=== PATIENT | female | born 1940 | race Caucasian/White ===

== ENCOUNTER → 2018-05-17 | Emergency (ER) | payer MEDICARE, OTHER ==
[~2018-05-17] VITALS: Ht 165.1 cm; Wt 66.0 kg
[~2018-05-17] MED LIST: ONDA4TAB6 PO; normal saline 1000ML IV soln IVB ONE
[2018-05-17 10:25] LABS: BASOPHILS % (AUTO) 0.6 % (0-1); EOSINOPHILS # (AUTO) 0.3 X10'3 (0-0.9); EOSINOPHILS % (AUTO) 6.3 % (0-6); HEMATOCRIT 40.9 % (35.0-45.0); HEMOGLOBIN 13.8 g/dl (12.0-16.0); LYMPHOCYTES # (AUTO) 1.3 X10'3 (1.1-4.8); LYMPHOCYTES % (AUTO) 25.8 % (21-51); MEAN CORPUSCULAR HEMOGLOBIN 31.4 PG (27.0-31.0); MEAN CORPUSCULAR HGB CONC 33.8 % (33.0-36.5); MEAN CORPUSCULAR VOLUME 92.9 FL (78-98); MEAN PLATELET VOLUME 8.3 FL (7.4-10.4); MONOCYTES # (AUTO) 0.4 X10'3 (0-0.9); MONOCYTES % (AUTO) 7.6 % (2-12); NEUTROPHILS % (AUTO) 59.7 % (42-75); PLATELET COUNT 197 X10'3 (140-440); RED CELL DISTRIBUTION WIDTH 13.9 % (11.5-14.5)
[2018-05-17 10:40] LABS: INR 1.1 INR; PARTIAL THROMBOPLASTIN TIME 27 SECONDS (22-32); PROTHROMBIN TIME 10.8 SECONDS (9.0-12.0)
[2018-05-17 10:41] LABS: ALANINE AMINOTRANSFERASE 15 U/L (12-78); ALBUMIN 3.7 G/DL (3.4-5.0); ALBUMIN/GLOBULIN RATIO 1.2 (1.1-1.5); ALKALINE PHOSPHATASE 64 IU/L (46-116); ANION GAP 8 (8-16); ASPARTATE AMINO TRANSFERASE 23 U/L (10-37); BILIRUBIN,TOTAL 0.6 MG/DL (0.1-1.0); BLOOD UREA NITROGEN 23 MG/DL (7-18); BUN/CREATININE RATIO 17.2 (6.6-38.0); CALCIUM 9.2 MG/DL (8.5-10.1); CHLORIDE 104 MMOL/L (99-107); CREATININE 1.34 MG/DL (0.40-0.90); GLUCOSE 117 MG/DL (70-104); POTASSIUM 4.9 MMOL/L (3.5-5.1); SODIUM 142 MMOL/L (135-145); TOTAL CARBON DIOXIDE 30.5 MMOL/L (24-32); TOTAL PROTEIN 6.8 G/DL (6.4-8.2); eGFR 38 ML/MIN
[2018-05-17 12:08] VITALS: BP 145/85
== END | disposition home or self-care (01) ==
LOC: ER 09:56
DX: R42 Dizziness and giddiness (principal); E03.9 Hypothyroidism, unspecified; Z98.890 Other specified postprocedural states
CPT/HCPCS: 36415; 71045; 80053; 84484; 85025; 85610; 85730; 93005; 99284

== ENCOUNTER 2018-10-11 14:24 | Emergency (ER) | payer MEDICARE ==
[~2018-10-11] VITALS: Ht 162.6 cm; Wt 67.7 kg
[~2018-10-11 14:24] MED LIST changes: -normal saline 1000ML IV soln IVB ONE
[2018-10-11] MEDS ORDERED: HYDROcodone/acetaminophen 5mg/325mg tablet PO ONE (16:05)
[2018-10-11 16:13] VITALS: BP 166/97
[2018-10-11] MEDS ORDERED: TRAM50TA2 PO (16:13)
--- NOTE | 2018-10-11 16:22 | NUR ---
PT CALLED SON. STATED WILL BE HERE IN THE NEXT 30 MIN
== END 2018-10-11 16:27 | disposition home or self-care (01) ==
LOC: ER 14:24
DX: S20.212A Contusion of left front wall of thorax, initial encounter (principal); S20.211A Contusion of right front wall of thorax, initial encounter; E03.9 Hypothyroidism, unspecified; Z79.899 Other long term (current) drug therapy; W18.2XXA Fall in (into) shower or empty bathtub, initial encounter; Y93.89 Activity, other specified; Y92.89 Other specified places as the place of occurrence of the external cause; Y99.8 Other external cause status
CPT/HCPCS: 71100; 99284

== ENCOUNTER 2019-01-24 22:10 | Inpatient (IN) | payer MEDICARE ==
[~2019-01-24] VITALS: Ht 162.6 cm; Wt 70.0 kg
[2019-01-24] MEDS ORDERED: HYDROcodone/acetaminophen 5mg/325mg tablet PO ONE (22:30)
--- NOTE | 2019-01-24 22:40 | NUR ---
Gretel adler in [facility] - 01/24/19 at 2301 by KEI assisted jorge pt into a inezn
--- NOTE | 2019-01-24 22:55 | NUR ---
pt to ct
--- NOTE | 2019-01-24 22:55 | NUR ---
Gretel adler in [facility] - 01/24/19 at 2303 by KEI pt to xray
--- NOTE | 2019-01-24 23:27 | NUR ---
pt given warm blankets and socks. she reports her pain is decreased from arrival
--- NOTE | 2019-01-25 00:44 | NUR ---
pt up out of bed to bedside commode. transfered independently.
[2019-01-25] MEDS ORDERED: morphine 4 MG/ML inj SYRINge IV ONE (01:10)
[2019-01-25 01:38] LABS: BASOPHILS % (AUTO) 0.4 % (0-1); EOSINOPHILS # (AUTO) 0.1 X10'3 (0-0.9); EOSINOPHILS % (AUTO) 1.8 % (0-6); HEMATOCRIT 37.2 % (35.0-45.0); HEMOGLOBIN 12.7 g/dl (12.0-16.0); LYMPHOCYTES # (AUTO) 1.3 X10'3 (1.1-4.8); LYMPHOCYTES % (AUTO) 16.5 % (21-51); MEAN CORPUSCULAR HEMOGLOBIN 32.4 PG (27.0-31.0); MEAN CORPUSCULAR HGB CONC 34.1 g/dL (33.0-36.5); MEAN CORPUSCULAR VOLUME 95.1 FL (78-98); MEAN PLATELET VOLUME 7.6 FL (7.4-10.4); MONOCYTES # (AUTO) 0.5 X10'3 (0-0.9); MONOCYTES % (AUTO) 6.6 % (2-12); NEUTROPHILS # (AUTO) 5.9 X10'3 (1.8-7.7); NEUTROPHILS % (AUTO) 74.7 % (42-75); PLATELET COUNT 163 X10'3 (140-440); RED BLOOD COUNT 3.91 X10'6 (4.20-5.60); RED CELL DISTRIBUTION WIDTH 13.8 % (11.5-14.5); WHITE BLOOD COUNT 7.9 X10'3 (4.5-11.0)
[2019-01-25] MEDS ORDERED: morphine 2 MG/ML inj. syringe IV PRN (01:45)
[2019-01-25] MEDS ORDERED: ondansetron/PF 4mg/2ml inj IV PRN (01:45)
[2019-01-25] MEDS ORDERED: magnesium hydroxide 30ml (MOM) UD suspension PO PRN (01:45)
[2019-01-25] MEDS ORDERED: mag hydrox/Alum hydrox/simeth 30ml oral suspension PO PRN (01:45)
[2019-01-25] MEDS ORDERED: acetaminophen 325mg tablet PO PRN ×2 (01:45)
[2019-01-25 01:46] LABS: CLARITY,URINE CLEAR (Clear); COLOR,URINE YELLOW (Yellow); GLUCOSE, URINE NEGATIVE (Neg); KETONES,URINE NEGATIVE (Neg); LEUKOCYTE ESTERASE ,URINE NEGATIVE (Neg); NITRITES, URINE NEGATIVE (Neg); OCCULT BLOOD,URINE TRACE-INTACT (Neg); PH,URINE 5.5 (4.8-8.0); PROTEIN,URINE NEGATIVE (Neg); UROBILINOGEN,URINE 0.2 E.U/dL (0.2-1.0)
[2019-01-25 01:48] LABS: UA COLLECTION TYPE CLN CATCH MIDSTREAM
[2019-01-25 01:50] LABS: PARTIAL THROMBOPLASTIN TIME 26 SECONDS (22-32)
[2019-01-25 01:52] LABS: BACTERIA,URINE NONE SEEN /HPF (Neg); MUCUS STRANDS NONE SEEN /LPF (Neg); RBC,URINE 0-2 /HPF (0-2); SQUAMOUS EPITHELIAL CELL,UR FEW /LPF (FEW); WBC,URINE NONE SEEN /HPF (0-4)
[2019-01-25 01:53] LABS: ALANINE AMINOTRANSFERASE 29 U/L (12-78); ALBUMIN 3.5 G/DL (3.4-5.0); ALBUMIN/GLOBULIN RATIO 1.3 (1.1-1.5); ALKALINE PHOSPHATASE 53 IU/L (46-116); ANION GAP 7 (8-16); ASPARTATE AMINO TRANSFERASE 45 U/L (10-37); BILIRUBIN,TOTAL 0.5 MG/DL (0.1-1.0); BLOOD UREA NITROGEN 31 MG/DL (7-18); BUN/CREATININE RATIO 23.3 (6.6-38.0); CALCIUM 8.6 MG/DL (8.5-10.1); CHLORIDE 108 MMOL/L (99-107); CREATININE 1.33 MG/DL (0.40-0.90); GLUCOSE 109 MG/DL (70-104); POTASSIUM 4.4 MMOL/L (3.5-5.1); SODIUM 142 MMOL/L (135-145); TOTAL PROTEIN 6.3 G/DL (6.4-8.2); eGFR 38 ML/MIN
[2019-01-25 01:56] LABS: ETHANOL < 0.010 GM/DL (0.0-0.010); TROPONIN I < 0.04 NG/ML (0.0-0.05)
[2019-01-25] MEDS ORDERED: ACET-2006 PO (02:11)
[2019-01-25] MEDS ORDERED: BENA20TA82 PO (02:12)
--- NOTE | 2019-01-25 02:38 | NUR ---
medicated pt with 4 mg of morphine iv for pain rated 4/10 to neck and back
[2019-01-25] MEDS ORDERED: PARO20TA6 PO (02:41)
[2019-01-25] MEDS ORDERED: ATOR10TA87 PO (02:42)
[2019-01-25] MEDS ORDERED: LEVO100T PO (02:45)
--- NOTE | 2019-01-25 04:10 | NUR ---
pt arrived to unit with all belonging, call light in reach, VS stable, pt oriented to room
[2019-01-25 04:23] VITALS: BP 172/73
--- NOTE | 2019-01-25 05:09 | NUR ---
pt states that she wants to be FULL CODE pt was listed as limited code, no compressions, when asking the pt wishes before putting on limited code band pt stated that she "wanted her chest to be pounded on to save her life". pt was then asked in the event that her heart stopped would she want all measures taken including chest compressions and defib to save her life she stated "yes i want to live, last time i didn't care but i do now". called Dr. Wise and explained pt's wishes
--- NOTE | 2019-01-25 05:40 | NUR ---
I have reviewed and agree with assessment done by charge nurse Momo Molina RN
[2019-01-25 06:00] VITALS: BP 144/76
--- NOTE | 2019-01-25 06:40 | NUR ---
Patient in room PCU 3026. I have received report from SOWMYA Saunders and had the opportunity to ask questions and assume patient care.
--- NOTE | 2019-01-25 06:42 | NUR ---
Problems reprioritized. Patient report given, questions answered & plan of care reviewed with Sreedhar DENG.
[2019-01-25] MEDS ORDERED: RALO60TA13 PO (07:32)
[2019-01-25] MEDS: enoxaparin 40mg/0.4ml syringe SUBCUT SCH (07:52)
[2019-01-25] MEDS ORDERED: potassium Cl 20 mEq SR tablet PO PRN ×2 (09:55)
[2019-01-25] MEDS ORDERED: potassium CL 10mEq/100ml bag 100 ML IV PRN (09:55)
[2019-01-25] MEDS ORDERED: magnesium 4gm in 100ml NS 100 ML IV PRN (09:55)
[2019-01-25] MEDS ORDERED: magnesium Cl slow-release 64mg tablet PO PRN (09:55)
--- NOTE | 2019-01-25 10:23 | NUR ---
PAGER ID: [phone] MESSAGE: [id number] Lianet Escobedo: Listed as limited code no compressions, per Noc shift RN patient stated she wanted to be full code. SOWMYA Eli ext [phone]
[2019-01-25 11:00] VITALS: BP 164/69
[2019-01-25] MEDS: morphine 2 MG/ML inj. syringe IV PRN (11:14)
[2019-01-25] MEDS ORDERED: pneumococcal 23-VAL P-sac vacc 25 mcg/0.5ml vial IMVAC ONE (14:20)
[2019-01-25 15:00] VITALS: BP 149/71
--- NOTE | 2019-01-25 18:15 | NUR ---
Patient in room PCU 3026. I have received report from Sreedhar DENG and had the opportunity to ask questions and assume patient care.
--- NOTE | 2019-01-25 18:32 | NUR ---
Problems reprioritized. Patient report given, questions answered & plan of care reviewed with Chip RN.
[2019-01-25] MEDS: lisinopril 20mg tablet PO SCH (20:49)
[2019-01-25] MEDS: HYDROcodone/acetaminophen 5mg/325mg tablet PO PRN (20:49)
[2019-01-25 22:00] VITALS: BP 176/70
--- NOTE | 2019-01-25 22:00 | NUR ---
BP of 176/70 noted, per previous conversation with MD. Wise, he does not prescribe prn medications for BP because "there is no significant evidence of improved outcomes by this method". will continue to monitor
[2019-01-26] VITALS (8 sets, daily range): BP systolic 124–190; BP diastolic 48–89
--- NOTE | 2019-01-26 02:55 | NUR ---
NOTIFIED pt BP is 190/79, this was rechecked using manual method and is true. called Dr. Wise with result, . asked if there was evidence of organ dysfunction, there is not. . states that he will defer to day shift for further treatment. will continue to monitor.
--- NOTE | 2019-01-26 06:10 | NUR ---
Problems reprioritized. Patient report given, questions answered & plan of care reviewed with Sreedhar DENG.
--- NOTE | 2019-01-26 06:25 | NUR ---
Patient in room PCU 3026. I have received report from SOWMYA Saunders and had the opportunity to ask questions and assume patient care.
[2019-01-26 06:36] LABS: ALBUMIN 3.4 G/DL (3.4-5.0); ANION GAP 9 (8-16); BLOOD UREA NITROGEN 16 MG/DL (7-18); BUN/CREATININE RATIO 16.8 (6.6-38.0); CALCIUM 8.6 MG/DL (8.5-10.1); CHLORIDE 106 MMOL/L (99-107); CREATININE 0.95 MG/DL (0.40-0.90); GLUCOSE 111 MG/DL (70-104); MAGNESIUM 1.8 MG/DL (1.5-2.4); PHOSPHORUS 2.9 MG/DL (2.3-4.5); POTASSIUM 3.6 MMOL/L (3.5-5.1); SODIUM 142 MMOL/L (135-145); TOTAL CARBON DIOXIDE 27.3 MMOL/L (24-32); eGFR 57 ML/MIN
[2019-01-26 06:41] LABS: BASOPHILS % (AUTO) 0.3 % (0-1); EOSINOPHILS # (AUTO) 0.1 X10'3 (0-0.9); EOSINOPHILS % (AUTO) 1.2 % (0-6); HEMATOCRIT 38.1 % (35.0-45.0); LYMPHOCYTES # (AUTO) 0.9 X10'3 (1.1-4.8); LYMPHOCYTES % (AUTO) 14.6 % (21-51); MEAN CORPUSCULAR HEMOGLOBIN 32.8 PG (27.0-31.0); MEAN CORPUSCULAR HGB CONC 34.2 g/dL (33.0-36.5); MEAN CORPUSCULAR VOLUME 95.9 FL (78-98); MEAN PLATELET VOLUME 8.3 FL (7.4-10.4); MONOCYTES # (AUTO) 0.5 X10'3 (0-0.9); MONOCYTES % (AUTO) 7.8 % (2-12); NEUTROPHILS # (AUTO) 4.6 X10'3 (1.8-7.7); NEUTROPHILS % (AUTO) 76.1 % (42-75); PLATELET COUNT 135 X10'3 (140-440); RED BLOOD COUNT 3.97 X10'6 (4.20-5.60); RED CELL DISTRIBUTION WIDTH 13.6 % (11.5-14.5); WHITE BLOOD COUNT 6.1 X10'3 (4.5-11.0)
[2019-01-26] MEDS: lisinopril 20mg tablet PO SCH ×2 (07:34→19:45)
[2019-01-26] MEDS: raloxifene 60mg tablet PO SCH (07:34)
[2019-01-26] MEDS: levoTHYROXINE 100mcg tablet PO SCH (07:34)
[2019-01-26] MEDS: atorvastatin 10mg tablet PO SCH (07:34)
[2019-01-26] MEDS: PARoxetine 20mg tablet PO SCH (07:34)
[2019-01-26] MEDS: enoxaparin 40mg/0.4ml syringe SUBCUT SCH (07:35)
[2019-01-26] MEDS: morphine 2 MG/ML inj. syringe IV PRN (07:36)
--- NOTE | 2019-01-26 10:15 | NUR ---
Patient in room PCU 3026. I have received report from SOWMYA Eli and had the opportunity to ask questions and assume patient care.
--- NOTE | 2019-01-26 18:46 | NUR ---
Problems reprioritized. Patient report given, questions answered & plan of care reviewed with SOWMYA Rendon.
[2019-01-27] MEDS: HYDROcodone/acetaminophen 5mg/325mg tablet PO PRN ×2 (01:54→13:19)
[2019-01-27 02:00] VITALS: BP 159/80
[2019-01-27 05:24] LABS: BASOPHILS % (AUTO) 0.3 % (0-1); EOSINOPHILS # (AUTO) 0.1 X10'3 (0-0.9); EOSINOPHILS % (AUTO) 1.1 % (0-6); HEMOGLOBIN 12.3 g/dl (12.0-16.0); LYMPHOCYTES # (AUTO) 0.9 X10'3 (1.1-4.8); LYMPHOCYTES % (AUTO) 13.3 % (21-51); MEAN CORPUSCULAR HGB CONC 34.3 g/dL (33.0-36.5); MEAN CORPUSCULAR VOLUME 96.3 FL (78-98); MEAN PLATELET VOLUME 8.6 FL (7.4-10.4); MONOCYTES # (AUTO) 0.6 X10'3 (0-0.9); MONOCYTES % (AUTO) 9.2 % (2-12); NEUTROPHILS # (AUTO) 5.3 X10'3 (1.8-7.7); NEUTROPHILS % (AUTO) 76.1 % (42-75); PLATELET COUNT 137 X10'3 (140-440); RED BLOOD COUNT 3.74 X10'6 (4.20-5.60); RED CELL DISTRIBUTION WIDTH 13.6 % (11.5-14.5)
[2019-01-27 06:00] VITALS: BP 161/84
--- NOTE | 2019-01-27 06:05 | NUR ---
Problems reprioritized. Patient report given, questions answered & plan of care reviewed with Pacheco DENG.
[2019-01-27 06:15] LABS: ALBUMIN 3.1 G/DL (3.4-5.0); ANION GAP 7 (8-16); BLOOD UREA NITROGEN 18 MG/DL (7-18); BUN/CREATININE RATIO 16.7 (6.6-38.0); CALCIUM 8.2 MG/DL (8.5-10.1); CHLORIDE 105 MMOL/L (99-107); CREATININE 1.08 MG/DL (0.40-0.90); GLUCOSE 114 MG/DL (70-104); MAGNESIUM 1.9 MG/DL (1.5-2.4); PHOSPHORUS 3.1 MG/DL (2.3-4.5); POTASSIUM 3.4 MMOL/L (3.5-5.1); SODIUM 141 MMOL/L (135-145); TOTAL CARBON DIOXIDE 28.6 MMOL/L (24-32); eGFR 49 ML/MIN
--- NOTE | 2019-01-27 06:20 | NUR ---
Patient in room PCU 3026. I have received report from Julieta DENG and had the opportunity to ask questions and assume patient care.
[2019-01-27] MEDS: levoTHYROXINE 100mcg tablet PO SCH (07:44)
[2019-01-27] MEDS: raloxifene 60mg tablet PO SCH (07:44)
[2019-01-27 07:45] VITALS: BP_SYST 161
[2019-01-27] MEDS: lisinopril 20mg tablet PO SCH (07:45)
[2019-01-27] MEDS: PARoxetine 20mg tablet PO SCH (07:45)
[2019-01-27] MEDS: atorvastatin 10mg tablet PO SCH (07:45)
[2019-01-27] MEDS: enoxaparin 40mg/0.4ml syringe SUBCUT SCH (07:46)
[2019-01-27] MEDS ORDERED: AMLO5TAB4 PO (10:48)
[2019-01-27] MEDS ORDERED: amLODIPine 5mg tablet PO ONE (10:50)
--- NOTE | 2019-01-27 11:19 | NUR ---
PAGER ID: [phone] MESSAGE: RE: Lianet Escobedo, Room: 302. Pt concerned about pain management at home and was wondering about pain meds at [place]. -[facility][phone] Dr. Lozano paged concerning Pt concern about pain managment once DC'd.
--- NOTE | 2019-01-27 14:25 | NUR ---
Pt DC'd home with son. IV removed, canula intact. Pt stable upon DC and vitals within normal limits. DC paperwork gone over with Pt and son. Allowed Pt and son to ask questions concerning DC/follow-up and then answer them. New prescriptions called into [facility] pharmacy on [address]. Allowed t to ask questions concerning new meds and then answer them. Pt will make follow up appt with PCP at [facility]. Pt's belongings gathered and sent with Pt. Pt wheeled down to lobby via wheel chair and left in private vehicle with son.
== END 2019-01-27 14:25 | disposition home health service (06) | DRG 184 ==
LOC: ER 22:11 → PCU 3S 01-25 04:15 → CMPBEDREQ 01-25 04:25
PROVIDERS: ADMIT Hospitalist; ATTEND Family Medicine
PROC: 3E0234Z Introduction of Serum, Toxoid and Vaccine into Muscle, Percutaneous Approach (ICD-10-PCS; principal; 2019-01-25)
DX: S22.42XA Multiple fractures of ribs, left side, initial encounter for closed fracture (principal); S22.069A Unspecified fracture of T7-T8 vertebra, initial encounter for closed fracture; J98.11 Atelectasis; S22.059A Unspecified fracture of T5-T6 vertebra, initial encounter for closed fracture; S22.049A Unspecified fracture of fourth thoracic vertebra, initial encounter for closed fracture; J43.2 Centrilobular emphysema; S00.03XA Contusion of scalp, initial encounter; E78.5 Hyperlipidemia, unspecified; W10.9XXA Fall (on) (from) unspecified stairs and steps, initial encounter; E89.0 Postprocedural hypothyroidism; F32.9 Major depressive disorder, single episode, unspecified; I10 Essential (primary) hypertension; I25.10 Atherosclerotic heart disease of native coronary artery without angina pectoris; K57.30 Diverticulosis of large intestine without perforation or abscess without bleeding; M47.812 Spondylosis without myelopathy or radiculopathy, cervical region; Z85.3 Personal history of malignant neoplasm of breast; Z85.828 Personal history of other malignant neoplasm of skin; Z90.710 Acquired absence of both cervix and uterus; Z92.3 Personal history of irradiation; Z23 Encounter for immunization; Y93.K1 Activity, walking an animal; Y92.89 Other specified places as the place of occurrence of the external cause; Y99.8 Other external cause status; Z98.51 Tubal ligation status; Z79.890 Hormone replacement therapy
CPT/HCPCS: 36415; 70450; 71250; 72125; 74176; 80048; 80053; 80320; 81001; 83735; 84100; 84443; 84484; 85025; 85610; 85730; 87081; 90732; 96372; 96374; 96376; 97116; 97161; 97530; 99285; G0378; J1650; J2270

== ENCOUNTER 2019-04-18 12:23 | Outpatient (CLI) | payer MEDICARE ==
[~2019-04-18] VITALS: Ht 162.6 cm; Wt 63.5 kg
[~2019-04-18 12:23] MED LIST changes: +ACET-2006 PO; +AMLO5TAB4 PO; +ATOR10TA87 PO; +BENA20TA82 PO; +LEVO100T PO; -ONDA4TAB6 PO; +PARO20TA6 PO; +RALO60TA13 PO
[2019-04-18 12:50] LABS: TOTAL HEMOGLOBIN 14.7 G/dl (12.0-16.0)
[2019-04-18] MEDS ORDERED: albuterol 2.5 MG/3 ML nebule NEB ONE (13:25)
== END 2019-04-18 23:59 | disposition home or self-care (01) ==
LOC: RT 12:23
PROVIDERS: ATTEND Internal Medicine Pulmonary Disease
DX: J44.9 Chronic obstructive pulmonary disease, unspecified (principal)
CPT/HCPCS: 85018; 94060; 94727; 94729; 94760

== ENCOUNTER 2021-02-02 13:48 | Emergency (ER) | payer MEDICARE ==
[~2021-02-02] VITALS: Ht 162.6 cm; Wt 72.6 kg
[2021-02-02 15:03] VITALS: BP 199/94
[2021-02-02] MEDS ORDERED: HYDROcodone/acetaminophen 5mg/325mg tablet PO ONE (15:40)
[2021-02-02] MEDS ORDERED: HYDR-3965 PO (16:18)
== END 2021-02-02 16:50 | disposition home or self-care (01) ==
LOC: ER 13:49
DX: S22.31XA Fracture of one rib, right side, initial encounter for closed fracture (principal); E03.9 Hypothyroidism, unspecified; Z98.890 Other specified postprocedural states; Z85.9 Personal history of malignant neoplasm, unspecified; Z79.899 Other long term (current) drug therapy; W01.0XXA Fall on same level from slipping, tripping and stumbling without subsequent striking against object, initial encounter; Y93.89 Activity, other specified; Y92.89 Other specified places as the place of occurrence of the external cause; Y99.8 Other external cause status
CPT/HCPCS: 71101; 99283

== ENCOUNTER 2024-10-09 20:20 | Emergency (ER) | payer MEDICARE ==
[~2024-10-09] VITALS: Ht 170.2 cm; Wt 59.1 kg
[~2024-10-09 20:20] MED LIST changes: -AMLO5TAB4 PO; +AMLO5TAB5 PO; +DULO30CA52 PO; +FLUT1BLS4 INH; +LACT1CAP26 PO
[2024-10-09 20:44] LABS: BASOPHILS % (AUTO) 0.7 % (0-1); EOSINOPHILS # (AUTO) 0.1 X10'3 (0-0.9); EOSINOPHILS % (AUTO) 1.5 % (0-6); HEMATOCRIT 35.7 % (35.0-45.0); HEMOGLOBIN 12.2 g/dl (12.0-16.0); LYMPHOCYTES # (AUTO) 1.2 X10'3 (1.1-4.8); MEAN CORPUSCULAR HEMOGLOBIN 31.2 PG (27.0-31.0); MEAN CORPUSCULAR HGB CONC 34.3 g/dL (33.0-36.5); MEAN PLATELET VOLUME 7.7 FL (7.4-10.4); MONOCYTES # (AUTO) 0.7 X10'3 (0-0.9); MONOCYTES % (AUTO) 18.3 % (2-12); NEUTROPHILS # (AUTO) 1.7 X10'3 (1.8-7.7); NEUTROPHILS % (AUTO) 45.5 % (42-75); PLATELET COUNT 161 X10'3 (140-440); RED BLOOD COUNT 3.92 X10'6 (4.20-5.60); RED CELL DISTRIBUTION WIDTH 13.7 % (11.5-14.5); WHITE BLOOD COUNT 3.7 X10'3 (4.5-11.0)
[2024-10-09 20:55] LABS: ALANINE AMINOTRANSFERASE 14 U/L (12-78); ALBUMIN 3.2 G/DL (3.4-5.0); ALBUMIN/GLOBULIN RATIO 1.3 (1.1-1.5); ALKALINE PHOSPHATASE 73 IU/L (46-116); ANION GAP 5 (8-16); ASPARTATE AMINO TRANSFERASE 19 U/L (10-37); BILIRUBIN,TOTAL 0.3 MG/DL (0.1-1.0); BLOOD UREA NITROGEN 25 MG/DL (7-18); BUN/CREATININE RATIO 19.2 (10.0-20.0); CALCIUM 8.4 MG/DL (8.5-10.1); CHLORIDE 104 MMOL/L (99-107); GLUCOSE 112 MG/DL (70-104); POTASSIUM 4.1 MMOL/L (3.5-5.1); SODIUM 139 MMOL/L (135-145); TOTAL CARBON DIOXIDE 30.4 MMOL/L (24-32); TOTAL PROTEIN 5.7 G/DL (6.4-8.2); eCRCL 30 ML/MIN; eGFR 39 ML/MIN
[2024-10-09 21:00] LABS: TOTAL CELLS COUNTED 100
[2024-10-09 21:02] LABS: BURR CELLS 1+; PLATELET ESTIMATE NORMAL; POIKILOCYTOSIS 1+; PRO BRAIN NATRIURETIC PEPTIDE 548 PG/ML (0-450)
--- NOTE | 2024-10-09 21:47 | RADIOLOGY REPORT ---
CT CT HEAD INDICATION: FALL W/ HEADSTRIKE COMPARISON: None TECHNIQUE: CT of the head without intravenous contrast. RADIATION DOSE: CTDIvol: mGy, DLP: mGy*cm FINDINGS: There is no evidence of intracranial hemorrhage, infarct, extra-axial collection, mass effect, midli ne shift, herniation or hydrocephalus. Mild chronic white matter microvascular ischemic change. Mild ventricular enlargement and sulcal enlargement related to cerebral volume loss. Visualized paranasal sinuses and mastoid air cells are clear. Soft tissues and osseous structures are unremarkable. IMPRESSION: No hemorrhage or other acute intracranial abnormality. Mild chronic white matter microvascular ischem ic changes and cerebral volume loss.
--- NOTE | 2024-10-09 22:06 | RADIOLOGY REPORT ---
CHEST RADIOGRAPH Indication: CP Technique: Single frontal view of the chest was obtained COMPARISON: Chest PA 02/02/21 FINDINGS: Lines and Tubes: None Lungs: Clear Pleura: No effusion. No pneumothorax. Cardiomediastinal contours: Heart size is within normal limits. Probable hiatal hernia. IMPRESSION: No acute disease. No significant change compared to the prior chest x-ray from January 2021.
[2024-10-09 22:32] LABS: BILIRUBIN,URINE NEGATIVE (Neg); CLARITY,URINE CLEAR (Clear); COLOR,URINE YELLOW (Yellow); GLUCOSE, URINE NEGATIVE (Neg); KETONES,URINE NEGATIVE (Neg); LEUKOCYTE ESTERASE ,URINE NEGATIVE (Neg); NITRITES, URINE NEGATIVE (Neg); OCCULT BLOOD,URINE NEGATIVE (Neg); PROTEIN,URINE NEGATIVE (Neg); UROBILINOGEN,URINE 0.2 E.U/dL (0.2-1.0)
[2024-10-09 22:36] LABS: UA COLLECTION TYPE CLN CATCH MIDSTREAM
--- NOTE | 2024-10-10 01:15 | Physician Documentation ---
History of Present Illness ~ Chief Complaint: Dizziness Stated Complaint: FALL Time Seen by MD: 00:56 Primary Medical Doctor: IN [facility] Mode of Arrival: EMS HPI Patient presents to the emergency room for evaluation of dizziness and falls. She reports that she has been working with her primary care provider who is sent [facility] however it has not worked and she is becoming frustrated. She states she has fallen multiple times. This has been going on for the past two months. No one-sided weakness. Dizziness exacerbated with head movement. No one-sided weakness reported. She states that she has had head imaging before. She also states that she has been evaluated at our hospital as well as [facility] for these falls although nothing recent in our records showed this. Medication Reconciliation Allergies: Coded Allergies: No Known Allergies (Unverified , 03/11/24) Scheduled Acetaminophen (Acetaminophen Extra Strength), 2 PO BID, (Reported) Amlodipine Besylate (Norvasc), 1 TAB PO DAILY, (Reported) Atorvastatin Calcium* (Lipitor*), 1 TABLET PO DAILY, (Reported) Benazepril Hcl* (Lotensin*), 1 TAB PO BID, (Reported) Duloxetine HCl (Duloxetine HCl), 1 CAP PO DAILY, (Reported) Fluticasone/Umeclidin/Vilanter (Trelegy Ellipta 100-62.5-25), 1 PUFFS INH DAILY, (Reported) Lactobacillus Rhamnosus (Culturelle), 1 CAP PO DAILY Levothyroxine Sodium (Synthroid), 1 TAB PO DAILY, (Reported) Paroxetine HCl (Paroxetine HCl), 1 TAB PO DAILY, (Reported) Raloxifene HCl (Raloxifene HCl), 1 TAB PO DAILY, (Reported) Past Medical History Past Medical History: COPD, Pneumonia, Diverticulitis, Hypothyroidism, Basal Cell, Depression Past Surgical History: cancer surgery, other Other Past Surgical History: thyroidectomy Drug Use: none Lives with: Family Lives In: Home Occupation: employed Physical Exam Vital Signs: Temperature: 98.1, Source: Oral, Heart Rate: 76, Respiratory Rate: 16, BP: 135/67, Pulse Oximetry: 95, Weight: 59.090 Oxygen Flow Rate: 0 Progress Progress Note Had long conversation with patient's son. She has been having problems falling for weeks to months at this juncture. The reason why ambulance was called this evening was because she fell out of bed and hit her head in the 100 to be evaluated. He states that her biggest problem is that she will fall when she is not using her walker. Nothing acute is changed. He states he feels safe taking her home and she has passed the road test. He in his brothers are working on possible rehab facility versus placement. Results/Orders Results/Orders Orders - WINSTON LAGUNAS MD Chest,Single View (10/09/24:25) Monitor (10/09/24:25) Saline Lock (10/09/24:25) Oxygen (10/09/24:25) Electrocardiogram (10/09/24:) Ct Head (10/09/24 21:40) Completed Orders - WINSTON LAGUNAS MD Chest,Single View (10/09/24:25) Cbc/Diff (10/09/24:) PBNP (10/09/24:25) CMP (10/09/24:) Hs Troponin I W Calculations (10/09/24:25) Hs Troponin I W Calculations (10/09/24 22:25) Hs Troponin I W Calculations (10/09/24 23:25) Urinalysis, Cult If Indicated (10/09/24:37) Man Diff (10/09/24 20:34) Ct Head (10/09/24 21:40) Vital Signs 10/09/24 10/09/24 10/09/24 10/10/24 20:37 21:17 22:20 00:21 Temp 98.1 Pulse 78 76 76 Resp 16 16 16 16 B/P (MAP) 130/69 136/75 (95) 135/67 (89) Pulse Ox 97 92 95 O2 Flow Rate 0 0 0 Laboratory Tests Test 10/09/24 20:34 10/09/24 22:10 10/09/24 22:30 10/09/24 23:23 White Blood Count 3.7 L Red Blood Count 3.92 L Hemoglobin 12.2 Hematocrit 35.7 Mean Corpuscular Volume 91.0 Mean Corpuscular Hemoglobin 31.2 H Mean Corpuscular Hemoglobin Concent 34.3 Red Cell Distribution Width 13.7 Platelet Count 161 Mean Platelet Volume 7.7 Neutrophils (%) (Auto) 45.5 Lymphocytes (%) (Auto) 34.0 Monocytes (%) (Auto) 18.3 H Eosinophils (%) (Auto) 1.5 Basophils (%) (Auto) 0.7 Neutrophils # (Auto) 1.7 L Lymphocytes # (Auto) 1.2 Monocytes # (Auto) 0.7 Eosinophils # (Auto) 0.1 Basophils # (Auto) 0.0 CBC Comment Differential Total Cells Counted 100 Neutrophils % (Manual) 54.0 Lymphocytes % (Manual) 33.0 Monocytes % (Manual) 13.0 H Platelet Estimate Normal Red Blood Cell Morphology Perf Poikilocytosis 1+ Basophilic Stippling Estrada Cells 1+ Sodium Level 139 Potassium Level 4.1 Chloride Level 104 Carbon Dioxide Level 30.4 Anion Gap 5 L Blood Urea Nitrogen 25 H Creatinine 1.30 H Estimated GFR/1.73 m2 39 BUN/Creatinine Ratio 19.2 Glucose Level 112 H Calcium Level 8.4 L Total Bilirubin 0.3 Aspartate Amino Transf (AST/SGOT) 19 Alanine Aminotransferase (ALT/SGPT) 14 Alkaline Phosphatase 73 Troponin I High Sensitivity 16 18 15 Pro-B-Type Natriuretic Peptide 548 H Total Protein 5.7 L Albumin 3.2 L Globulin 2.5 L Albumin/Globulin Ratio 1.3 Chemistry Comments Urine Specimen Description Cln catch midstream Urine Color Yellow Urine Clarity Clear Urine pH 6.0 Urine Specific Albertson 1.010 Urine Protein Negative Urine Glucose (UA) Negative Urine Ketones Negative Urine Occult Blood Negative Urine Nitrite Negative Urine Bilirubin Negative Urine Urobilinogen 0.2 Urine Leukocyte Esterase Negative Urine Culture Indicated Not ind Volume Urine Centrifuged 10 ml Urine Comment Troponin I High Sens Percent Delta 12 16 Troponin I Hi Sens Absolute Change 2 -3 Medical Decision Making Findings Patient presented to the emergency room for evaluation after a fall. Patient has unsteady gait at baseline however this seems to be progressively getting worse. As patient hit the back of her head during a fall today she came in to be evaluated and CT scan was reassuring. She has passed the road test and seven feels safe taking her home. Labs reassuring for no major pathologic derangements or urinary tract infection. She was established with a primary care who is working with her unsteady gait. Departure Disposition: HOME / SELF CARE / HOMELESS Impression: Primary Impression: Fall Condition: Stable Discharge Instructions: Fall Prevention in the Home, Adult, [id number] Additional Instructions: You to use your walker at all times. Follow up with primary care for additional referrals for physical therapy. Referrals: NO PRIMARY CARE PROVIDER (PCP) Education Educated: Patient, Family Educated regarding: need for follow up Signature Scribe Signature: No scribe Attestation: The note accurately reflects work and decisions made by me.Winston Lagunas MD 10/10/24 02:07 WINSTON LAGUNAS MD October 10, 2024 01:15
[2024-10-10 03:13] VITALS: BP 144/76; PULSE 82; RESP 18; TEMP 98.4; O2SAT 98
--- NOTE | 2024-10-10 07:08 | ELECTROCARDIOGRAPH REPORT ---
[facility] Test Date: 2024-10-09 Test Time: 20:27:09 Pat Name: MILTON IRBY Department: EMERGENCY ROOM Room: Gender: F Spray Unit Feeder: : [id number] Requested By: LISA CAMPBELL Order Number: [id number] Reading MD: Dr. Danyel Benson Measurements Intervals Maud Rate: 79 P: 38 WI: 157 QRS: 13 QRSD: 94 T: 63 QT: 410 QTc: 471 Interpretive Statements Sinus rhythm Baseline wander in lead(s) II,V1 Electronically Signed On 10-10-2024 10:25:[address] Danyel Benson Please click the below link to view image of tracing.
== END 2024-10-10 03:15 | disposition home or self-care (01) ==
LOC: ER 20:21
DX: R42 Dizziness and giddiness (principal); R29.6 Repeated falls; E03.9 Hypothyroidism, unspecified; J44.9 Chronic obstructive pulmonary disease, unspecified; F32.A Depression, unspecified; Z90.89 Acquired absence of other organs
CPT/HCPCS: 36415; 70450; 71045; 80053; 81003; 83880; 84484; 85007; 85025; 93005; 99285

== ENCOUNTER 2024-10-18 02:25 | Inpatient (IN) | payer MEDICARE ==
[~2024-10-18] VITALS: Ht 162.6 cm; Wt 50.0 kg
[2024-10-18] VITALS (8 sets, daily range): BP systolic 131–141; BP diastolic 68–89; PULSE 78–85; RESP 13–20; TEMP 98.3–98.6; O2SAT 88–95
[2024-10-18 03:00] LABS: BASOPHILS % (AUTO) 0.4 % (0-1); EOSINOPHILS # (AUTO) 0.1 X10'3 (0-0.9); EOSINOPHILS % (AUTO) 1.1 % (0-6); HEMATOCRIT 36.3 % (35.0-45.0); HEMOGLOBIN 12.5 g/dl (12.0-16.0); LYMPHOCYTES # (AUTO) 0.8 X10'3 (1.1-4.8); LYMPHOCYTES % (AUTO) 6.2 % (21-51); MEAN CORPUSCULAR HGB CONC 34.5 g/dL (33.0-36.5); MEAN CORPUSCULAR VOLUME 89.8 FL (78-98); MEAN PLATELET VOLUME 7.9 FL (7.4-10.4); MONOCYTES # (AUTO) 0.8 X10'3 (0-0.9); MONOCYTES % (AUTO) 6.9 % (2-12); NEUTROPHILS # (AUTO) 10.6 X10'3 (1.8-7.7); NEUTROPHILS % (AUTO) 85.4 % (42-75); PLATELET COUNT 282 X10'3 (140-440); RED BLOOD COUNT 4.05 X10'6 (4.20-5.60); RED CELL DISTRIBUTION WIDTH 13.2 % (11.5-14.5); WHITE BLOOD COUNT 12.4 X10'3 (4.5-11.0)
[2024-10-18 03:23] LABS: ALANINE AMINOTRANSFERASE 13 U/L (12-78); ALBUMIN/GLOBULIN RATIO 0.8 (1.1-1.5); ALKALINE PHOSPHATASE 69 IU/L (46-116); ANION GAP 10 (8-16); ASPARTATE AMINO TRANSFERASE 15 U/L (10-37); BILIRUBIN,TOTAL 0.6 MG/DL (0.1-1.0); BLOOD UREA NITROGEN 18 MG/DL (7-18); BUN/CREATININE RATIO 15.7 (10.0-20.0); CALCIUM 8.6 MG/DL (8.5-10.1); CHLORIDE 100 MMOL/L (99-107); CREATININE 1.15 MG/DL (0.40-0.90); GLUCOSE 148 MG/DL (70-104); POTASSIUM 3.5 MMOL/L (3.5-5.1); SODIUM 138 MMOL/L (135-145); TOTAL CARBON DIOXIDE 27.8 MMOL/L (24-32); TOTAL PROTEIN 6.7 G/DL (6.4-8.2); eCRCL 28 ML/MIN; eGFR 45 ML/MIN
[2024-10-18 03:28] LABS: PRO BRAIN NATRIURETIC PEPTIDE 314 PG/ML (0-450)
--- NOTE | 2024-10-18 03:56 | RADIOLOGY REPORT ---
Clinical History CP Comparison CXR on 10/09/2024, 1 images. Technique: frontal chest x-ray Without Contrast MILTON IRBY, [id number] Findings: Heart - normal lungs - right. Dawit infiltrate.. bones - no acute fracture. Other- tracheal deviation to the right. Clips in the left axilla. Impression: 1. right perihilar infiltrate similar to prior examination. This report was electronically signed by Gil Pedro MD on 10/18/2024 3:53:22 AM.
--- NOTE | 2024-10-18 03:57 | Physician Documentation ---
History of Present Illness ~ Chief Complaint: Shortness of Breath Stated Complaint: DIFFICULTY BREATHING Time Seen by MD: 03:45 Primary Medical Doctor: IN [facility] Mode of Arrival: EMS HPI Patient presents to the emergency room with significant cough and fevers. 1 g of Tylenol given prior to arrival. Patient states she has been bringing up a lot of mucus. History of COPD Medication Reconciliation Allergies: Coded Allergies: No Known Allergies (Unverified , 10/18/24) Scheduled Acetaminophen (Acetaminophen Extra Strength), 2 PO BID, (Reported) Amlodipine Besylate (Norvasc), 1 TAB PO DAILY, (Reported) Atorvastatin Calcium* (Lipitor*), 1 TABLET PO DAILY, (Reported) Benazepril Hcl* (Lotensin*), 1 TAB PO BID, (Reported) Duloxetine HCl (Duloxetine HCl), 1 CAP PO DAILY, (Reported) Fluticasone/Umeclidin/Vilanter (Trelegy Ellipta 100-62.5-25), 1 PUFFS INH DAILY, (Reported) Lactobacillus Rhamnosus (Culturelle), 1 CAP PO DAILY Levothyroxine Sodium (Synthroid), 1 TAB PO DAILY, (Reported) Paroxetine HCl (Paroxetine HCl), 1 TAB PO DAILY, (Reported) Raloxifene HCl (Raloxifene HCl), 1 TAB PO DAILY, (Reported) Past Medical History Past Medical History: COPD, Pneumonia, Diverticulitis, Hypothyroidism, Basal Cell, Depression Past Surgical History: cancer surgery, other Other Past Surgical History: thyroidectomy Drug Use: none Lives with: Family Lives In: Home Occupation: employed Review of Systems ROS All review of systems negative except as per HPI Physical Exam Vital Signs: Temperature: 99.7, Source: Oral, Heart Rate: 80, Respiratory Rate: 16, BP: 129/63, Pulse Oximetry: 91, Weight: 50.000 Oxygen Flow Rate: 0 Physical Exam General: Patient is awake, alert, oriented x4 in no acute distress Head: Normocephalic and atraumatic. Eyes: Conjunctival normal. EOMI. PERRL. ENT: Mucous membranes moist. Neck: Supple, trachea is midline. Chest: Coarse breath sounds bilaterally right greater than left. There is no accessory muscle use or retractions. Cardiac: RRR without murmurs, gallops, or rubs. Abd: Soft, nondistended, nontender, with normoactive bowel sounds. No guarding, rebound, or rigidity. Progress Results/Orders Results/Orders Orders - WINSTON LAGUNAS MD Chest,Single View (10/18/24 02:45) Monitor (10/18/24 02:34) Saline Lock (10/18/24 02:34) Oxygen (10/18/24 02:34) Electrocardiogram (10/18/24 02:34) Hs Troponin I W Calculations (10/18/24 04:34) Hs Troponin I W Calculations (10/18/24 05:34) Culture Blood (10/18/24 02:35) Lacticsepsis (10/18/24 02:35) Covid19 Binax Poc Result Entry (10/18/24 02:36) Azithromycin/Ns 500mg/250ml (Zithromax/N (10/18/24 03:50) Ceftriaxone/T9e-Dezaxudp 1gm (Rocephin 1 (10/18/24 03:50) Normal Saline 1000ml (Sodium Chloride 10 (10/18/24 03:50) Completed Orders - WINSTON LAGUNAS MD Chest,Single View (10/18/24 02:45) Cbc/Diff (10/18/24 02:34) PBNP (10/18/24 02:34) CMP (10/18/24 02:34) Hs Troponin I W Calculations (10/18/24 02:34) Procalcitonin (10/18/24 02:35) Normal Saline 1000ml (Sodium Chloride 10 (10/18/24 03:50) Vital Signs 10/18/24 10/18/24 10/18/24 02:26 02:36 03:31 Temp 99.7 Pulse 92 80 Resp 20 18 16 B/P (MAP) 143/70 129/63 (85) Pulse Ox 92 91 O2 Flow Rate 0 Laboratory Tests Test 10/18/24 02:40 10/18/24 02:47 White Blood Count 12.4 H Red Blood Count 4.05 L Hemoglobin 12.5 Hematocrit 36.3 Mean Corpuscular Volume 89.8 Mean Corpuscular Hemoglobin 31.0 Mean Corpuscular Hemoglobin Concent 34.5 Red Cell Distribution Width 13.2 Platelet Count 282 Mean Platelet Volume 7.9 Neutrophils (%) (Auto) 85.4 H Lymphocytes (%) (Auto) 6.2 L Monocytes (%) (Auto) 6.9 Eosinophils (%) (Auto) 1.1 Basophils (%) (Auto) 0.4 Neutrophils # (Auto) 10.6 H Lymphocytes # (Auto) 0.8 L Monocytes # (Auto) 0.8 Eosinophils # (Auto) 0.1 Basophils # (Auto) 0.0 CBC Comment Sodium Level 138 Potassium Level 3.5 Chloride Level 100 Carbon Dioxide Level 27.8 Anion Gap 10 Blood Urea Nitrogen 18 Creatinine 1.15 H Estimated GFR/1.73 m2 45 BUN/Creatinine Ratio 15.7 Glucose Level 148 H Calcium Level 8.6 Total Bilirubin 0.6 Aspartate Amino Transf (AST/SGOT) 15 Alanine Aminotransferase (ALT/SGPT) 13 Alkaline Phosphatase 69 Troponin I High Sensitivity 13 Pro-B-Type Natriuretic Peptide 314 Total Protein 6.7 Albumin 3.0 L Globulin 3.7 Albumin/Globulin Ratio 0.8 L Procalcitonin < 0.05 Chemistry Comments SARS-CoV-2 Antigen (Rapid) Positive *A EKG/XRAY/CT/US/VASC/MRI EKG : Additional Comment EKG interpreted by myself shows time of 0233, rate 90, sinus rhythm, borderline left axis deviation, no ST changes Chest X-Ray : Additional Comments Chest x-ray interpreted by myself shows right upper lobe infiltrate, no effusions, normal cardiac silhouette Medical Decision Making Findings Patient presents to the emergency room for evaluation of cough and fevers. Chest x-ray shows an infiltrate. Mild elevation of white blood cell count. IV antibiotics initiated. Patient's blood pressures are reassuring. I do not feel she would do well on outpatient basis as she is high risk Departure Admitted to Inpatient Unit: yes, to hospitalist Impression: Primary Impression: Pneumonia Condition: Guarded Discharge Instructions: Community-Acquired Pneumonia, Adult Referrals: NO PRIMARY CARE PROVIDER (PCP) Signature Scribe Signature: No scribe Attestation: The note accurately reflects work and decisions made by me.Winston Lagunas MD 10/18/24 03:57 WINSTON LAGUNAS MD October 18, 2024 03:57
[2024-10-18] MEDS: CefTRIAXone/D5W-Rocephin 1gm 50 ML IV ONE (04:30)
[2024-10-18] MEDS ORDERED: potassium Cl 20 mEq SR tablet PO PRN ×2 (04:35)
[2024-10-18] MEDS ORDERED: magnesium Cl slow-release 64mg tablet PO PRN (04:35)
[2024-10-18] MEDS ORDERED: mag hydrox/Alum hydrox/simeth 30ml oral suspension PO PRN (04:35)
[2024-10-18] MEDS ORDERED: magnesium sulf-water 2g/50mL 50 ML IV PRN (04:35)
[2024-10-18] MEDS ORDERED: magnesium sulf-water 4G/100mL 100 ML IV PRN (04:35)
[2024-10-18] MEDS ORDERED: magnesium hydroxide 30ml (MOM) UD suspension PO PRN (04:35)
[2024-10-18] MEDS ORDERED: potassium Cl 40MEQ/1/2NS 520ml 520 ML IV PRN (04:35)
[2024-10-18] MEDS: azithromycin/NS 500mg/250ml 250 ML IV ONE (04:41)
[2024-10-18] MEDS: normal saline 1000ML IV soln IVB ONE ×2 (04:42→06:00)
--- NOTE | 2024-10-18 04:47 | HISTORY AND PHYSICAL-Residence ---
History & Physical Providers to CC Resident Creating Document: ROLO FLETCHER, RAMON ~ History of Present Illness Primary Medical Doctor: IN [facility] Reason for Admit\Complaint: Pneumonia History of Present Illness This is an 84-year-old female with past medical history of COPD, obstructive sleep apnea on CPAP at night, hypertension came to the ER with a chief complaint of cough and shortness of breadth. The cough started about five days associated with yellow sputum. Also has low-grade fever. She also complained of shortness of breadth, increasing on walking. She also complained of pain in the left side of the chest which started this morning, described it as constant, sharp, 8 / 10, increasing with a deep breath. Denies palpitations, leg swellings. Denies any sick contacts. Denies any recent travel history. Allergies: Coded Allergies: No Known Allergies (Unverified , 10/18/24) Home Medications Home Medications Active Culturelle (Lactobacillus Rhamnosus) 10 Billion Cell Capsule 1 Cap PO DAILY 45 Days Reported Norvasc (Amlodipine Besylate) 5 Mg Tablet 1 Tab PO DAILY 30 Days Duloxetine HCl 30 Mg Capsule.dr 1 Cap PO DAILY Trelegy Ellipta 100-62.5-25 (Fluticasone/Umeclidin/Vilanter) 100-62.5 Blst.w.dev 1 Puffs INH DAILY Raloxifene HCl 60 Mg Tablet 1 Tab PO DAILY Synthroid (Levothyroxine Sodium) 100 Mcg Tablet 1 Tab PO DAILY 30 Days Lipitor* (Atorvastatin Calcium) 10 Mg Tablet 1 Tablet PO DAILY Paroxetine HCl 20 Mg Tablet 1 Tab PO DAILY 30 Days Lotensin* (Benazepril HCl) 20 Mg Tablet 1 Tab PO BID Acetaminophen Extra Strength (Acetaminophen) 500 Mg Tablet 2 PO BID Past Medical History Past Medical History COPD Sleep apnea Breast cancer status post surgery in remission Skin cancer Hypertension Past Surgical History Surgical History Comment Left Breast cancer status post surgery Tubal ligation Thyroidectomy Past Social History Social History Comment Quit smoking 20 years ago, previously smoked about 1-2 cigarettes a day Denies any history of alcohol use Denies any history of drug use Lives with her son Uses a walker Drug Use: None Lives with: Family Lives In: Home Occupation: employed ROS Constitutional: Reports: fever Eyes: Denies: no symptoms reported, see HPI, pain, discharge, blurred vision, double vision, itching, photophobia, redness, tearing, other ENT: Denies: no symptoms reported, see HPI, ear pain, ear bleeding, ear discharge, hearing loss, ear ringing, nose pain, nose bleeding, nose congestion, nose discharge, throat pain, throat swelling, voice change, mouth pain, mouth bleeding, mouth swelling, other Respiratory: Reports: cough, shortness of breath Cardiovascular: Reports: chest pain Gastrointestinal: Denies: no symptoms reported, see HPI, abdomen distended, abdominal pain, nausea, vomiting, diarrhea, constipated, melena, hematemesis, hematochezia, rectal bleeding, rectal pain, dysphagia, poor appetite, poor fluid intake, other Genitourinary: Denies: no symptoms reported, see HPI, burning, discharge, dysuria, frequency, flank pain, hematuria, incontinence, pain, decreased urine output, urgency, other Neurological: Denies: no symptoms reported, see HPI, speech problem, headache, dizziness, fainting, tingling, left sided numbness, right sided numbness, left sided weakness, right sided weakness, problems walking, unable to move lower ext, unable to move upper ext, petit mal seizures, tonic-clonic seizures, cognitive dysfunction, other Musculoskeletal: Denies: no symptoms reported, see HPI, pain, swelling, back pain, gout, joint pain, joint swelling, muscle pain, muscle swelling, muscle stiffness, neck pain, other Exam Vitals: Vital Signs Date Time Temp Pulse Resp B/P (MAP) Pulse Ox O2 Delivery O2 Flow Rate FiO2 10/18/24 03:31 80 16 129/63 (85) 91 10/18/24 02:26 99.7 0 General: General: Elderly female Awake and Alert, no acute distress. HEENT: Conjunctiva pink, Sclera clear, Mucus Membranes moist. Neck: Supple without masses and tenderness. Resp: Unlabored. Equal breath sounds bilaterally. Heart: Regular rhythm, normal S1 and S2, no rub, murmur or gallop. Abdomen: Soft no tenderness, no organomegaly. Normal bowel sounds x4 quadrant normoactive. No guarding or rigidity. Extremities: Normal ROM, no swelling, nontender. No cyanosis,clubbing or edema. 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 Skin: Warm and Dry. Diagnostic Data Last Recorded Lab Results: 10/18/24 0240 10/18/24 0240 Advance Care Planning Advanced Care plannin - 30 Minutes (I spent 17 minutes in discussing various resuscitative measures, the patient chose to be DNR) Additional Plan Assessment This is a 84-year-old female with past medical history of hypertension, COPD, sleep apnea on CPAP, came to the ER with the chief complaints of cough, fever, shortness of breadth. Patient tested positive for COVID-19. Plan Possible Pneumonia, antibiotics covering Gram-positive and Gram-negative organisms Positive COVID-19 Patient is currently on room air, saturating at 92 Low-grade fever. Elevated WBC count, normal procalcitonin Chest x-ray showed some consolidation in the right lung Started on Paxlovid. Started on ceftriaxone and azithromycin DuoNebs q.4 p.r.n. Fluids NS@ 100 mL/hour Isolation precautions Chest Pain, Heart score 4 Chest pain increases on deep inspiration likely pleuritic type Troponins negative. EKG no specific ST-T changes Morphine prn. History of hypertension Continue patient's home medication amlodipine once the med rec is done History of hypothyroidism Continue patient's home medication levothyroxine once the med rec is done History of COPD, not in acute exacerbation History of sleep apnea DuoNebs q.4 p.r.n. CPAP daily Code state: DNR DVT prophylaxis: Heparin Diet: Regular diet Prognosis: Fair Rolo Fletcher M.D PGY1 Date of Service: October 18, 2024 Billing Provider: MEJIA ALBERT MD, PRAVAHIKA, RES October 18, 2024 04:47
[2024-10-18] MEDS ORDERED: morphine 2 MG/ML inj. syringe IV PRN (05:55)
[2024-10-18] MEDS: normal saline 1000ml 1,000 ML IV SCH (06:04)
[2024-10-18] MEDS: morphine 2 MG/ML inj. syringe IV PRN (06:37)
--- NOTE | 2024-10-18 07:06 | ELECTROCARDIOGRAPH REPORT ---
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 Danyel Benson Measurements Intervals [place] Rate: 90 P: 3 NH: 145 QRS: -20 QRSD: 96 T: 62 QT: 372 QTc: 455 Interpretive Statements Sinus rhythm Borderline left axis deviation Electronically Signed On 10-20-2024 11:02:[address] Danyel Benson Please click the below link to view image of tracing.
[2024-10-18] MEDS: ipratropium/albuterol 3ml nebule NEB PRN (07:29)
[2024-10-18] MEDS: docusate sod 100mg capsule PO SCH (08:00)
[2024-10-18] MEDS: K and/or MAG REPLACEMENT MC SCH (08:00)
[2024-10-18 08:14] LABS: MAGNESIUM 1.7 MG/DL (1.5-2.4)
[2024-10-18] MEDS: guaiFENesin ER 600mg tablet PO SCH (08:52)
[2024-10-18] MEDS: NIRMATRELVIR/RITONAVIR 300/100mg - 1 EACH TAB.DS.PK PO SCH (08:52)
[2024-10-18] MEDS: heparin, porcine 5000 units/ml vial SQ SCH (08:52)
[2024-10-18] MEDS: acetaminophen 325mg tablet PO PRN (08:58)
[2024-10-18] MEDS: HYDROcodone/acetaminophen 5mg/325mg tablet PO PRN (11:38)
[2024-10-18] MEDS: ondansetron/PF 4mg/2ml inj IV PRN (11:38)
[2024-10-18] MEDS ORDERED: acetaminophen 325mg tablet PO PRN (13:30)
[2024-10-18] MEDS: HYDROcodone/acetaminophen 10/325mg tab PO PRN (16:25)
[2024-10-19] VITALS (8 sets, daily range): BP systolic 125–130; BP diastolic 52–64; PULSE 60–90; RESP 14–20; TEMP 97.6–98.5; O2SAT 92–98
[2024-10-19 05:02] LABS: BASOPHILS # (AUTO) 0.1 X10'3 (0-0.2); BASOPHILS % (AUTO) 0.3 % (0-1); EOSINOPHILS # (AUTO) 0.1 X10'3 (0-0.9); EOSINOPHILS % (AUTO) 0.3 % (0-6); HEMATOCRIT 35.8 % (35.0-45.0); HEMOGLOBIN 11.9 g/dl (12.0-16.0); LYMPHOCYTES # (AUTO) 1.3 X10'3 (1.1-4.8); LYMPHOCYTES % (AUTO) 5.6 % (21-51); MEAN CORPUSCULAR HEMOGLOBIN 30.3 PG (27.0-31.0); MEAN CORPUSCULAR HGB CONC 33.4 g/dL (33.0-36.5); MEAN PLATELET VOLUME 8.2 FL (7.4-10.4); MONOCYTES # (AUTO) 1.3 X10'3 (0-0.9); MONOCYTES % (AUTO) 5.7 % (2-12); NEUTROPHILS # (AUTO) 19.8 X10'3 (1.8-7.7); NEUTROPHILS % (AUTO) 88.1 % (42-75); PLATELET COUNT 304 X10'3 (140-440); RED BLOOD COUNT 3.94 X10'6 (4.20-5.60); RED CELL DISTRIBUTION WIDTH 13.2 % (11.5-14.5); WHITE BLOOD COUNT 22.5 X10'3 (4.5-11.0)
[2024-10-19] MEDS: azithromycin 250mg tablet PO SCH (05:07)
[2024-10-19] MEDS: CefTRIAXone/D5W-Rocephin 1gm 50 ML IV SCH (05:07)
[2024-10-19 05:18] LABS: ALBUMIN 2.7 G/DL (3.4-5.0); ANION GAP 7 (8-16); BLOOD UREA NITROGEN 17 MG/DL (7-18); BUN/CREATININE RATIO 13.8 (10.0-20.0); CALCIUM 8.3 MG/DL (8.5-10.1); CHLORIDE 103 MMOL/L (99-107); CHOL/HDL RATIO 3.1 (0.00-4.99); CHOLESTEROL 143 MG/DL (0-200); CREATININE 1.23 MG/DL (0.40-0.90); GLUCOSE 124 MG/DL (70-104); HDL CHOLESTEROL 46 MG/DL (35-60); LDL CHOLESTEROL 71 MG/DL (50-100); MAGNESIUM 1.5 MG/DL (1.5-2.4); POTASSIUM 3.8 MMOL/L (3.5-5.1); SODIUM 137 MMOL/L (135-145); TOTAL CARBON DIOXIDE 27.3 MMOL/L (24-32); TRIGLYCERIDES 78 MG/DL (20-135); eCRCL 26 ML/MIN; eGFR 41 ML/MIN
[2024-10-19 07:50] LABS: PRO BRAIN NATRIURETIC PEPTIDE 2306 PG/ML (0-450)
[2024-10-19] MEDS: azithromycin/NS 500mg/250ml 250 ML IV SCH (09:24)
--- NOTE | 2024-10-19 14:28 | PROGRESS NOTE ---
Daily Progress Note Providers to CC ~ Antibiotic Timeout Antibiotic Ordered?: Yes If Yes, Indications: PNA Subjective No acute events overnight. Patient examined at bedside. No new complaints, not in acute distress. Patient is lethargic, demented. Vss, on 6L O2, labs notable for uptrended white count. Continued on abx and IVF. 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 Patient tested positive for COVID-19. # Community-acquired pneumonia, covering for Gram-positive and Gram-negative # COVID19 # Sepsis 2/2 PNA- POA -pleuritic chest pain, CXR shows right pneumonia -IVF, abx, antiviral -follow CT chest # Hypertension # HLD -LDL 71; continue home amlodipine, statin # Hypothyroidism -continue home levothyroxine; follow TSH/T4 # COPD, not in acute exacerbation # ULICES -prn bronchodilator, CPAP at night Code state: DNR DVT prophylaxis: Heparin Diet: Regular diet Prognosis: Fair Date of Service: October 19, 2024 Billing Provider: WILLIAM CAMACHO Common Visit Codes: [id number] INP/OBS CARE(HIGH) WILLIAM CAMACHO October 19, 2024 14:28
[2024-10-19 15:05] LABS: THYROID STIMULATING HORMONE 13.62 ulU/ml (0.34-4.50)
--- NOTE | 2024-10-19 16:23 | RADIOLOGY REPORT ---
CT Chest without intravenous contrast INDICATION: pna TECHNIQUE: Multidetector spiral CT of the chest was performed from the lung apices to the upper abdom en. Axial, coronal and sagittal multiplanar reformats were performed. Radiation Dose : 1. Chest: CTDI volume is 16 mGy. Dose-length product is 578 mGy*cm The dose indicators for CT are the volume Computed Tomography (CT) Dose Index (CTDIvol) and the Dose Length Product (DLP), and are measured in units of mGy and mGy-cm, respectively. These indicators are not patient dose, but values generated from the CT scanner acquisition factors. The report includes radiation exposure data for exposures received during this examination. Comparison: Chest x-ray 10 18 2024 Findings: Lower neck: Normal thyroid. Lungs: Right upper lobe infiltrate, posterior segment. Moderate lingular infiltrate, increased since the previous chest x-ray. Infiltrate also present in the left upper lobe inferiorly. Heart/Vascular Structures: Normal heart size. No pericardial effusion. Moderately severe vascular guillermo cification of the thoracic aorta. No aneurysm. No pericardial effusion. Lymph Nodes: No adenopathy Pleura: Mild bilateral pleural effusions, left greater than right. Musculoskeletal: No acute osseous abnormality. Levoscoliosis. Soft tissues: Surgical clips left axilla. Upper abdomen: Limited portions of the upper abdomen are unremarkable. IMPRESSION: 1. Bilateral moderate pneumonic infiltrates. Findings increased since the prior chest x-ray. Bilateral pleural effusions, left greater than right No malignant adenopathy Normal heart size Radiation optimization: All CT scans at this facility use at least one of these dose optimization edelmira hniques: automated exposure control mA and/or kV adjustment per patient size (includes targeted exam s where dose is matched to clinical indication) or iterative reconstruction.
[2024-10-19] MEDS ORDERED: non-formulary drug (Benazepril Hcl* (Lotensin*) 1 TAB) PO SCH (20:00)
[2024-10-20 05:00] VITALS: BP 155/71; PULSE 88; RESP 14; TEMP 98.1; O2SAT 93
[2024-10-20 06:47] LABS: BASOPHILS % (AUTO) 0.1 % (0-1); EOSINOPHILS # (AUTO) 0.1 X10'3 (0-0.9); EOSINOPHILS % (AUTO) 0.4 % (0-6); HEMATOCRIT 34.4 % (35.0-45.0); HEMOGLOBIN 11.6 g/dl (12.0-16.0); LYMPHOCYTES # (AUTO) 1.2 X10'3 (1.1-4.8); MEAN CORPUSCULAR HEMOGLOBIN 30.4 PG (27.0-31.0); MEAN CORPUSCULAR HGB CONC 33.9 g/dL (33.0-36.5); MEAN CORPUSCULAR VOLUME 89.6 FL (78-98); MEAN PLATELET VOLUME 8.2 FL (7.4-10.4); MONOCYTES # (AUTO) 0.7 X10'3 (0-0.9); MONOCYTES % (AUTO) 4.5 % (2-12); NEUTROPHILS # (AUTO) 14.6 X10'3 (1.8-7.7); PLATELET COUNT 321 X10'3 (140-440); RED BLOOD COUNT 3.83 X10'6 (4.20-5.60); RED CELL DISTRIBUTION WIDTH 13.3 % (11.5-14.5); WHITE BLOOD COUNT 16.6 X10'3 (4.5-11.0)
[2024-10-20 07:08] LABS: ALBUMIN 2.4 G/DL (3.4-5.0); ANION GAP 9 (8-16); BLOOD UREA NITROGEN 19 MG/DL (7-18); BUN/CREATININE RATIO 16.8 (10.0-20.0); CALCIUM 8.6 MG/DL (8.5-10.1); CHLORIDE 103 MMOL/L (99-107); CREATININE 1.13 MG/DL (0.40-0.90); FREE T4 (FREE THYROXINE) 1.02 NG/DL (0.73-1.40); GLUCOSE 100 MG/DL (70-104); MAGNESIUM 1.6 MG/DL (1.5-2.4); POTASSIUM 3.5 MMOL/L (3.5-5.1); SODIUM 137 MMOL/L (135-145); TOTAL CARBON DIOXIDE 25.3 MMOL/L (24-32); eCRCL 29 ML/MIN; eGFR 46 ML/MIN
[2024-10-20] MEDS: amLODIPine 5mg tablet PO SCH (09:25)
[2024-10-20] MEDS: levoTHYROXINE 100mcg tablet PO SCH (09:25)
[2024-10-20] MEDS: atorvastatin 10mg tablet PO SCH (09:26)
[2024-10-20 09:35] VITALS: RESP 16; O2SAT 93
[2024-10-20 10:00] VITALS: BP 136/87; PULSE 87; RESP 18; TEMP 98.6; O2SAT 94
--- NOTE | 2024-10-20 14:02 | PROGRESS NOTE ---
Daily Progress Note Providers to CC ~ Antibiotic Timeout Antibiotic Ordered?: Yes If Yes, Indications: PNA Subjective No acute events overnight. Patient examined at bedside. No new complaints, not in acute distress. Patient was coherent in am but altered in the afternoon. Off restraints, pending PT eval. Vss, on 6L O2, labs notable for downtrended white count, pBNP 2300. CT chest shows PNA and b/l pleural effusions. Continued on abx, IVF discontinued. 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 Patient tested positive for COVID-19. # Community-acquired pneumonia, covering for Gram-positive and Gram-negative # COVID19 # Acute hypoxic respiratory failure 2/2 above- POA # Sepsis 2/2 PNA- POA # Acute metabolic encephalopathy 2/2 above- POA # Acute decompensated HF- follow TTE -pleuritic chest pain, CXR shows right pneumonia -IVF, abx, antiviral -10/20: chest CT shows PNA, bilateral pleural effusions, bBNP 2300, IVF discontinued, Lasix started; follow TTE # Hypertension # HLD -LDL 71; continue home amlodipine, statin # Hypothyroidism -continue home levothyroxine; follow TSH/T4 # COPD, not in acute exacerbation # ULICES -bicarb wnl, prn bronchodilator, CPAP at night Code state: DNR DVT prophylaxis: Heparin Diet: Regular diet Prognosis: Fair Date of Service: October 20, 2024 Billing Provider: WILLIAM CAMACHO Common Visit Codes: [id number] INP/OBS CARE(HIGH) WILLIAM CAMACHO October 20, 2024 14:02
[2024-10-20] MEDS: PERFLUTREN PROTEIN-A MICROSPHR (Optison) 0.22 MG/ML 3ML VIAL IV ONE (14:05)
[2024-10-20 18:40] VITALS: BP 146/62; PULSE 102; RESP 22; TEMP 98.6; O2SAT 96
[2024-10-20] MEDS: furosemide 20 MG/2 ML vial IV SCH (20:46)
[2024-10-20 20:59] VITALS: PULSE 77; RESP 18; O2SAT 95
[2024-10-20 22:41] LABS: BILIRUBIN,URINE NEGATIVE (Neg); CLARITY,URINE CLEAR (Clear); COLOR,URINE YELLOW (Yellow); GLUCOSE, URINE NEGATIVE (Neg); KETONES,URINE NEGATIVE (Neg); LEUKOCYTE ESTERASE ,URINE NEGATIVE (Neg); NITRITES, URINE NEGATIVE (Neg); OCCULT BLOOD,URINE TRACE-INTACT (Neg); PH,URINE 5.5 (4.8-8.0); PROTEIN,URINE NEGATIVE (Neg); UROBILINOGEN,URINE 0.2 E.U/dL (0.2-1.0)
[2024-10-20 22:47] LABS: UA COLLECTION TYPE CLN CATCH MIDSTREAM
[2024-10-20 23:12] LABS: BACTERIA,URINE NONE SEEN /HPF (Neg); RBC,URINE NONE SEEN /HPF (0-2); SQUAMOUS EPITHELIAL CELL,UR FEW /LPF (FEW); WBC,URINE NONE SEEN /HPF (0-4)
[2024-10-21 06:14] LABS: ALBUMIN 2.3 G/DL (3.4-5.0); ANION GAP 8 (8-16); BLOOD UREA NITROGEN 16 MG/DL (7-18); BUN/CREATININE RATIO 14.5 (10.0-20.0); CALCIUM 8.6 MG/DL (8.5-10.1); CHLORIDE 104 MMOL/L (99-107); GLUCOSE 115 MG/DL (70-104); MAGNESIUM 1.7 MG/DL (1.5-2.4); POTASSIUM 3.2 MMOL/L (3.5-5.1); SODIUM 143 MMOL/L (135-145); TOTAL CARBON DIOXIDE 31.4 MMOL/L (24-32); eCRCL 30 ML/MIN; eGFR 47 ML/MIN
[2024-10-21 06:16] LABS: BASOPHILS # (AUTO) 0.1 X10'3 (0-0.2); BASOPHILS % (AUTO) 0.5 % (0-1); EOSINOPHILS % (AUTO) 0.2 % (0-6); HEMATOCRIT 37.2 % (35.0-45.0); HEMOGLOBIN 12.4 g/dl (12.0-16.0); LYMPHOCYTES % (AUTO) 7.9 % (21-51); MEAN CORPUSCULAR HEMOGLOBIN 30.1 PG (27.0-31.0); MEAN CORPUSCULAR HGB CONC 33.3 g/dL (33.0-36.5); MEAN CORPUSCULAR VOLUME 90.5 FL (78-98); MEAN PLATELET VOLUME 8.4 FL (7.4-10.4); MONOCYTES # (AUTO) 0.5 X10'3 (0-0.9); NEUTROPHILS # (AUTO) 11.5 X10'3 (1.8-7.7); NEUTROPHILS % (AUTO) 87.4 % (42-75); PLATELET COUNT 430 X10'3 (140-440); RED BLOOD COUNT 4.11 X10'6 (4.20-5.60); RED CELL DISTRIBUTION WIDTH 13.3 % (11.5-14.5); WHITE BLOOD COUNT 13.2 X10'3 (4.5-11.0)
[2024-10-21 10:00] VITALS: RESP 18; O2SAT 98
[2024-10-21] MEDS ORDERED: magnesium sulf-water 4G/100mL 100 ML IV PRN (10:20)
[2024-10-21] MEDS ORDERED: magnesium sulf-water 2g/50mL 50 ML IV PRN (10:20)
[2024-10-21] MEDS ORDERED: magnesium Cl slow-release 64mg tablet PO PRN (10:20)
[2024-10-21] MEDS ORDERED: POTASSIUM BICARB 20meq eff tab 20 MEQ TABLET.EFF PO PRN (10:20)
[2024-10-21] MEDS ORDERED: potassium Cl 20 mEq SR tablet PO PRN (10:20)
[2024-10-21] MEDS ORDERED: potassium Cl 40MEQ/1/2NS 520ml 520 ML IV PRN (10:20)
[2024-10-21] MEDS: potassium Cl 20 mEq SR tablet PO PRN (10:33)
[2024-10-21 11:12] VITALS: BP 135/64; PULSE 96; RESP 17; TEMP 98.6; O2SAT 93
[2024-10-21 12:00] VITALS: BP 132/78; PULSE 81; RESP 18; TEMP 98.1; O2SAT 95
[2024-10-21] MEDS ORDERED: ASPI81TA52 PO (13:36)
[2024-10-21] MEDS ORDERED: LEVO100T9 PO (13:36)
[2024-10-21] MEDS ORDERED: AMOX-419 PO (13:36)
--- NOTE | 2024-10-21 13:51 | DISCHARGE SUMMARY ---
Discharge Summary Providers to CC ~ Discharge Summary Admission Diagnosis: Pnuemonia/Covid -19 Hospital Course DATE OF ADMISSION: 10/18/24 DATE OF DISCHARGE: 10/21/24 Discharge Diagnosis\\Comment: Community-acquired pneumonia, covering for Gram-positive and Gram-negative COVID19 Acute hypoxic respiratory failure 2/2 above- POA Sepsis 2/2 PNA- POA Acute metabolic encephalopathy 2/2 above- POA Acute decompensated systolic heart failure- not POA Hypertension HLD Hypothyroidism COPD, not in acute exacerbation ULICES Generalized weakness Operations\\Procedures: None Consultants: None Complications: None Condition on DC: Stable New Medications: Amoxicillin/Potassium Clav (Augmentin 500-125 Tablet) 500 Mg-125 Mg Tablet 1 TAB PO Q8H for 5 Days, #15 TAB Aspirin (Aspirin EC) 81 Mg Tablet.dr 1 TAB PO DAILY for 30 Days, #30 TAB Furosemide (Lasix) 40 Mg Tablet 40 MG PO DAILY for 14 Days, #14 TAB Potassium Chloride* (K-Dur*) 20 Meq Tab.prt.sr 2 TAB PO DAILY for 14 Days, #28 TAB Levothyroxine Sodium (Levothyroxine Sodium) 100 Mcg Tablet 125 MCG PO DAILY for 90 Days, #90 TAB Continued Medications: Acetaminophen (Acetaminophen Extra Strength) 500 Mg Tablet 2 PO BID Amlodipine Besylate (Norvasc) 5 Mg Tablet 1 TAB PO DAILY for 30 Days, #30 TAB 0 Refills Atorvastatin Calcium* (Lipitor*) 10 Mg Tablet 1 TABLET PO DAILY, #30 TABLET Benazepril Hcl* (Lotensin*) 20 Mg Tablet 1 TAB PO BID, TAB Duloxetine HCl (Duloxetine HCl) 30 Mg Capsule.dr 1 CAP PO DAILY Fluticasone/Umeclidin/Vilanter (Trelegy Ellipta 100-62.5-25) 100-62.5 Blst.w.dev 1 PUFFS INH DAILY Lactobacillus Rhamnosus (Culturelle) 10 Billion Cell Capsule 1 CAP PO DAILY for 45 Days, #45 CAP 0 Refills Paroxetine HCl (Paroxetine HCl) 20 Mg Tablet 1 TAB PO DAILY for 30 Days, #30 TAB Raloxifene HCl (Raloxifene HCl) 60 Mg Tablet 1 TAB PO DAILY Discontinued Medications: Levothyroxine Sodium (Synthroid) 100 Mcg Tablet 1 TAB PO DAILY for 30 Days, #30 TAB Discharge Summary: History of Present Illness From H&P: "This is an 84-year-old female with past medical history of COPD, obstructive sleep apnea on CPAP at night, hypertension came to the ER with a chief complaint of cough and shortness of breadth. The cough started about five days associated with yellow sputum. Also has low-grade fever. She also complained of shortness of breadth, increasing on walking. She also complained of pain in the left side of the chest which started this morning, described it as constant, sharp, 8/10, increasing with a deep breath. Denies palpitations, leg swellings. Denies any sick contacts. Denies any recent travel history. This is a 84-year-old female with past medical history of hypertension, COPD, sleep apnea on CPAP, came to the ER with the chief complaints of cough, fever, shortness of breadth. Patient tested positive for COVID-19." Hospital Course Diagnostic findings were notable for positive COVID19, chest x-ray indicating pneumonia, fever, leukocytosis, hypoxia requiring supplemental oxygen. Patient was put in isolation and was started on intravenous fluids, empirical antib iotics, antiviral, supplemental oxygen, bronchodilator. A subsequent CT chest revealing pneumonia, bilateral pleural effusions. Once patient's condition stabilized, patient was started on diuretics due to clinical signs of fluid overload which was also reflected in CT chest and elevated pBNP. Patient had an episode of agitation and attempts were made to pull out IV, hence temporary restraints were ordered for patient safety. Patient did not experience further complications throughout the entire hospital stay and made a good recovery. Patient is saturating in 90s on room air with ambulation. Patient was seen and examined on the day of discharge. On day of discharge, vss, on room air, and labs unremarkable. Patient's mentation is at her baseline. Patient is to be discharged with and to follow-up with PCP within 2 weeks. 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
[2024-10-21] MEDS ORDERED: FURO-149 PO (13:56)
[2024-10-21] MEDS ORDERED: POTA-207 PO (13:56)
[2024-10-21 14:23] VITALS: O2SAT 98
[2024-10-21 14:30] VITALS: BP 127/69; PULSE 82; RESP 18; TEMP 98.1; O2SAT 95
--- NOTE | 2024-10-21 15:53 | CARDIOLOGY REPORT ---
APPROVED REPORT EXAM: Comprehensive 2D, Doppler, and color-flow Echocardiogram. 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 142.6 cm/s AoV VTI 21.3 cm AO Peak GR. 8.1 mmHg AO Mean GR. 5 mmHg LVOT VTI 18.65 cm LVOT Peak Jack. 110.5 cm/s DEANDRE(VTI)/BSA 2.66 cm2/m2 DEANDRE (VTI) 2.66 cm2 Mitral Valve MV E Velocity 61.1 cm/s MV Peak Gr. 2 mmHg MV DECEL TIME 240 ms MV A Velocity 98.8 cm/s MV PHT 72 ms E/A Ratio 0.6 MVA (PHT) 3.06 cm2 MV VMax63.9 cm/s TDI Medial E' P. V 6.89 cm/s E/Medial E' 8.9 Pulmonary Vein S1 Velocity 50.4 cm/s D2 Velocity 67.4 cm/s PVa Durdiolh18.9 cm/s PVa [id number] msec LEFT VENTRICLE Normal LV size and wall thickness. Overall systolic function is moderately reduced. LVEF is 40-45%. RIGHT VENTRICLE RV is normal size and function. ATRIA LA size is normal. AORTIC VALVE Trileaflet AV appears mildly sclerotic without stenosis or insufficiency. MITRAL VALVE Mild MV annular calcification without stenosis. Trace regurgitation. TRICUSPID VALVE TV appears structurally normal with trace regurgitation. PULMONIC VALVE Normal PV without stenosis, physiologic insufficiency. GREAT VESSELS Aortic root is normal in size. Ascending aorta is normal in size. PERICARDIUM Normal pericardium. No effusion. Very prominent epicardial fat pad. Left pleural effusion is present. Other Information Study Quality: Adequate Conclusion Normal LV size and wall thickness. Overall systolic function is moderately reduced. LVEF is 40-45%. RV is normal size and function. LA size is normal. Trileaflet AV appears mildly sclerotic without stenosis or insufficiency. Mild MV annular calcification without stenosis. Trace regurgitation. TV appears structurally normal with trace regurgitation. Normal pericardium. No effusion. Very prominent epicardial fat pad. Left pleural effusion is present .
== END 2024-10-21 15:00 | disposition home health service (06) | DRG 871 ==
LOC: ER 02:25 → ED HOLD 04:37 → SUR 3N 16:50
PROVIDERS: ADMIT Internal Medicine; ATTEND Nurse Practitioner Family
PROC: 5A09357 Assistance with Respiratory Ventilation, Less than 24 Consecutive Hours, Continuous Positive Airway Pressure (ICD-10-PCS; principal; 2024-10-18)
DX: A41.9 Sepsis, unspecified organism (principal); G93.41 Metabolic encephalopathy; U07.1 COVID-19; J96.01 Acute respiratory failure with hypoxia; I50.23 Acute on chronic systolic (congestive) heart failure; J12.82 Pneumonia due to coronavirus disease 2019; J15.69 Pneumonia due to other Gram-negative bacteria; J15.9 Unspecified bacterial pneumonia; J44.0 Chronic obstructive pulmonary disease with (acute) lower respiratory infection; F03.93 Unspecified dementia, unspecified severity, with mood disturbance; E89.0 Postprocedural hypothyroidism; G47.33 Obstructive sleep apnea (adult) (pediatric); I11.0 Hypertensive heart disease with heart failure; E78.5 Hyperlipidemia, unspecified; Z66 Do not resuscitate; Z85.3 Personal history of malignant neoplasm of breast; Z85.828 Personal history of other malignant neoplasm of skin; Z87.891 Personal history of nicotine dependence; Z78.9 Other specified health status
CPT/HCPCS: 36415; 71045; 71250; 80048; 80053; 80061; 81001; 83605; 83735; 83880; 84145; 84439; 84443; 84484; 85025; 87040; 87081; 87811; 93005; 93306; 94640; 94660; 94760; 96365; 96368; 96375; 97116; 97161; 97530; 99285; A4615; A6258; A6449; G0378; J0456; J0696; J1644; J1938; J2270; J2405; J7030